=== PATIENT | female | born 1980 | race Caucasian/White ===

== ENCOUNTER 2016-10-21 19:23 | Emergency (ER) | payer MEDICAID, OTHER ==
[2016-10-21] MEDS ORDERED: Sodium Chloride 0.9% 1,000 ML IV ONE (20:28)
--- NOTE | 2016-10-21 20:30 | EDM.PDOC ---
ED HPI GENERAL MEDICAL PROBLEM - General Chief Complaint: Abdominal Pain Stated Complaint: PT HAS STOMACH CRAMPS Time Seen by Provider: 10/21/16 20:26 - History of Present Illness INITIAL COMMENTS - FREE TEXT/NARRATIVE: HISTORY AND PHYSICAL: History of present illness: Patient 2 days from vaginal delivery who presents with a concern of possible narcotic withdrawal she also states she's had some abdominal cramping and lower back discomfort no fever chills or other complaints. Review of systems: As per history of present illness and below otherwise all systems reviewed and negative. Past medical history: As per history of present illness and as reviewed below otherwise noncontributory. Surgical history: As per history of present illness and as reviewed below otherwise noncontributory. Social history: No reported history of drug or alcohol abuse. Family history: As per history of present illness and as reviewed below otherwise noncontributory. Physical exam: HEENT: Atraumatic, normocephalic, pupils reactive, negative for conjunctival pallor or scleral icterus, mucous membranes moist, throat clear, neck supple, nontender, trachea midline. Lungs: Clear to auscultation, breath sounds equal bilaterally, chest nontender. Heart: S1S2, regular, negative for clicks, rubs, or JVD. Abdomen: Soft, nondistended, nontender. Negative for masses or hepatosplenomegaly. Negative for costovertebral tenderness. Pelvis: Stable nontender. Genitourinary: Deferred. Rectal: Deferred. Extremities: Atraumatic, negative for cords or calf pain. Neurovascular unremarkable. Neuro: Awake, alert, oriented. Cranial nerves II through XII unremarkable. Cerebellum unremarkable. Motor and sensory unremarkable throughout. Exam nonfocal. Diagnostics: CBC CMP UA quantitative beta-hCG Therapeutics: Normal saline 1 L bolus Impression: #1 history of opiate dependence #2 observation 2 days status post vaginal delivery #3 medical screening exam Definitive disposition and diagnosis as appropriate pending reevaluation and review of above. 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: Musculoskeletal History: Reports: None Neurological History: Reports: None Psychiatric History: Reports: Addiction Endocrine/Metabolic History: Reports: None - Infectious Disease History Infectious Disease History: Reports: None Social & Family History - Family History Family Medical History: Noncontributory - Tobacco Use Smoking Status *Q: Current Every Day Smoker Years of Tobacco use: 10 Packs/Tins Daily: 0.5 - Recreational Drug Use Recreational Drug Use: Yes Drug Use in Last 12 Months: Yes Recreational Drug Type: Reports: Oxycodone ED ROS GENERAL - Review of Systems Review Of Systems: ROS reveals no pertinent complaints other than HPI. ED EXAM, GENERAL - Physical Exam Exam: See Below (See dictation) Course - Vital Signs Last Recorded V/S: Last Vital Signs Temp 36.9 C 10/21/16 19:56 Pulse 68 10/21/16 19:56 Resp 16 10/21/16 19:56 BP 156/69 H 10/21/16 19:56 Pulse Ox 98 10/21/16 19:56 - Orders/Labs/Meds Orders: Active Orders 24 hr Category Date Time Status UA W/MICROSCOPIC [URIN] Stat Lab 10/21/16 23:05 Received Labs: Laboratory Tests 10/21/16 10/21/16 Range/Units 20:24 20:24 WBC 8.22 (4.0-11.0) K/uL RBC 3.74 L (4.30-5.90) M/uL Hgb 7.7 L (12.0-16.0) g/dL Hct 26.7 L (36.0-46.0) % MCV 71.4 L (80.0-98.0) fL MCH 20.6 L (27.0-32.0) pg MCHC 28.8 L (31.0-37.0) g/dL RDW Std Deviation 52.2 (28.0-62.0) fl RDW Coeff of Mary 20 H (11.0-15.0) % Plt Count 251 (150-400) K/uL Add Manual Diff YES Neutrophils % (Manual) 70 (48.0-80.0) % Band Neutrophils % 5 % Lymphocytes % (Manual) 18 (16.0-40.0) % Monocytes % (Manual) 6 (0.0-15.0) % Eosinophils % (Manual) 1 (0.0-7.0) % Nucleated RBC % 0.9 /100WBC Absolute Seg Neuts 5.8 Band Neutrophils # 0.4 Lymphocytes # (Manual) 1.5 Monocytes # (Manual) 0.5 Eosinophils # (Manual) 0.1 Nucleated RBCs 1 % Nucleated RBCs # 0 K/uL Sodium 142 (136-146) mmol/L Potassium 4.2 (3.5-5.1) mmol/L Chloride 113 H (98-110) mmol/L Carbon Dioxide 20 L (21-31) mmol/L BUN 12 (6.0-23.0) mg/dL Creatinine 0.7 (0.6-1.5) mg/dL Est Cr Clr Drug Dosing 97.79 mL/min Estimated GFR (MDRD) > 60.0 ml/min Glucose 92 (60-110) mg/dL Calcium 8.5 L (8.8-10.8) mg/dL Total Bilirubin 0.3 (0.1-1.5) mg/dL AST 44 H (5-40) IU/L ALT 47 (8-54) IU/L Alkaline Phosphatase 139 (40-150) Total Protein 6.3 (6.0-8.0) g/dL Albumin 3.2 L (3.5-5.0) g/dL Globulin 3.1 (2.0-3.5) g/dL Albumin/Globulin Ratio 1.0 L (1.3-2.8) HCG, Quant 747.5 mIU/mL Meds: Medications Discontinued Medications Generic Name Dose Route Start Last Admin Trade Name Clementina PRN Reason Stop Dose Admin Sodium Chloride 1,000 mls @ 999 mls/hr 10/21/16 20:28 10/21/16 20:54 Normal Saline IV 10/21/16 21:28 999 mls/hr STAT ONE Administration Departure - Departure Time of Disposition: 23:12 Disposition: Home, Self-Care 01 Condition: Good Clinical Impression: History of substance abuse, Encounter for medical screening examination - Discharge Information Forms: ED Department Discharge Additional Instructions: The following information is given to patients seen in the emergency department who are being discharged to home. This information is to outline your options for follow-up care. We provide all patients seen in our emergency department with a follow-up referral. The need for follow-up, as well as the timing and circumstances, are variable depending upon the specifics of your emergency department visit. If you don't have a primary care physician on staff, we will provide you with a referral. We always advise you to contact your personal physician following an emergency department visit to inform them of the circumstance of the visit and for follow-up with them and/or the need for any referrals to a consulting specialist. The emergency department will also refer you to a specialist when appropriate. This referral assures that you have the opportunity for followup care with a specialist. All of these measure are taken in an effort to provide you with optimal care, which includes your followup. Under all circumstances we always encourage you to contact your private physician who remains a resource for coordinating your care. When calling for followup care, please make the office aware that this follow-up is from your recent emergency room visit. If for any reason you are refused follow-up, please contact the [facility] emergency department at and asked to speak to the emergency department charge nurse. [facility] [address] [place] [phone] [facility] [address] [place] [id number] Follow-up primary medical doctor/KEYBOARDING CLERK in 24-48 hours return as needed as discussed - My Orders Last 24 Hours: My Active Orders 10/21/16 23:05 UA W/MICROSCOPIC [URIN] Stat - Assessment/Plan Last 24 Hours: My Active Orders 10/21/16 23:05 UA W/MICROSCOPIC [URIN] Stat
[2016-10-21 21:06] LABS: CHLORIDE,CL 113 mmol/L (98-110); SODIUM,NA 142 mmol/L (136-146)
[2016-10-22 01:17] VITALS: BP 129/80
== END 2016-10-22 00:05 | disposition home or self-care (01) ==
LOC: MW.ED 19:23
DX: Z39.2 Encounter for routine postpartum follow-up (principal); F11.21 Opioid dependence, in remission; O99.335 Smoking (tobacco) complicating the puerperium; F17.210 Nicotine dependence, cigarettes, uncomplicated
CPT/HCPCS: 36415; 80053; 81001; 84702; 85025; 96360; 99284; J7040; 99282